=== PATIENT | female | born 1965 | race Caucasian/White ===

== ENCOUNTER 2018-07-02 12:29 | Day surgery (SDC) | payer BC, SELFPAY ==
[2018-07-02 12:55] LABS: Hematocrit 41.7 % (37-47); Hemoglobin 13.5 g/dl (12.0-15.0); Mean Corp Hgb Conc 32.4 g/gl (32-36); Mean Corpuscular Hgb 29.6 pg (27.0-32.0); Mean Corpuscular Volume 91.4 fL (81-99); Mean Platelet Vol. 9.7 fl (6.2-12.0); Platelet Count 252 K/mm3 (150-450); RBC Distribution Width CV 13.3 % (11.6-14.6); Red Blood Count 4.56 M/mm3 (4.2-5.4); White Blood Count 12.7 K/mm3 (4.4-11.0)
[2018-07-02 13:02] LABS: Scan Indicated on CBC? Y/N NO
[2018-07-02 13:12] VITALS: BP 102/84; PULSE 81; RESP 18; TEMP 37.1; O2SAT 99; BMI 25.7
[2018-07-02 13:26] LABS: Bedside Glucose 125 mg/dL (70-110)
[2018-07-02] MEDS: Bupivacaine Mpf 0.5% 30 ML VIAL (14:30)
[2018-07-02 15:00] VITALS: BP 102/84; BP 130/72; PULSE 99; RESP 16; TEMP 36.5; O2SAT 96
[2018-07-02 15:15] VITALS: BP 102/84; BP 115/75; PULSE 97; RESP 18; O2SAT 100
--- NOTE | 2018-07-02 15:25 | PCM.OPRPT ---
Problem List (1) Sialolith Status: Acute Report of Operation Date of Procedure: 07/02/18 Pre-Operative Diagnosis: Sialolith Post-Operative Diagnosis: Same Surgery/Procedure Performed:: Sialolithotomy with Sialodochoplasty Description of Surgical Findings:: Sialolithiasis Type of Anesthesia:: General Anesthesiologist: Vickey Epps Special Medications: none Estimated Blood Loss (mL): minimal Description of Procedure: Patient seen in pre op holding area where the risks and potential complications were explained. Risks were parathesia of the left lingual nerve and continued pain with possibility of further surgery required. Patient taken to OR suite and placed in supine position. Appropriate anesthesia monitors paced and patient induced for general anesthesia and intubated without incidence via the oral route. Patient then prepped and draped in the usual manner for ora/max procedures. At this time local anesthesia administered in the left floor of mouth region. After anesthesia given both sharp and blunt dissection from the left lingual region was performed carefully avoiding important structures such as lingual nerve and arteries. The duct and stone was located and sharp/blunt dissection was done to remove the large sialolith. After irrigation the ductal ends were sutured to the floor of the mouth incision. This essentially ended the operation. The throat was suctioned free of fluids and the patient was awakened and extubated in the OR. Taken to recovery room in stable condition. All sponge and needle counts were correct. - Admit VTE Documentation VTE Present on Admission: Yes
[2018-07-02 15:31] VITALS: BP 102/84; BP 113/74; PULSE 90; RESP 18; TEMP 36.3; O2SAT 93
[2018-07-02 16:10] VITALS: BP 102/84; BP 110/78; PULSE 78; RESP 18; TEMP 36.8; O2SAT 99
== END 2018-07-02 16:13 | disposition home or self-care (01) ==
LOC: SDC 12:30 → AC 12:31
PROVIDERS: Family Provider Family Medicine; PCP Family Medicine; Visit Provider Dentist Oral and Maxillofacial Surgery
PROC: (CPT 42330; principal; 2018-07-02 13:45)
DX: K11.5 Sialolithiasis (principal); E78.00 Pure hypercholesterolemia, unspecified; E11.9 Type 2 diabetes mellitus without complications; Z85.41 Personal history of malignant neoplasm of cervix uteri; Z79.899 Other long term (current) drug therapy; I10 Essential (primary) hypertension; F17.200 Nicotine dependence, unspecified, uncomplicated
CPT/HCPCS: 42330; 42500; 36415; 82962; 85027; J7120; J2405